=== PATIENT | male | born 1960 | race Caucasian/White ===

== ENCOUNTER 2017-09-21 05:30 | Outpatient (CLI) | payer BC ==
[~2017-09-21] VITALS: Ht 175.3 cm; Wt 96.2 kg
== END 2017-09-21 11:16 ==
LOC: PREOP 05:30
PROVIDERS: ATTEND Internal Medicine
DX: Z01.818 Encounter for other preprocedural examination (principal); Z12.11 Encounter for screening for malignant neoplasm of colon

== ENCOUNTER 2017-09-28 08:36 | Day surgery (SDC) | payer BC ==
--- NOTE | 2017-09-20 16:51 | HISTORY AND PHYSICAL ---
DATE OF SERVICE: DATE OF ADMISSION: 09/28/2017. COLONOSCOPY HISTORY AND PHYSICAL HISTORY OF PRESENT ILLNESS: The patient is a 57-year-old white male referred for his first screening colonoscopy by Dr. Vargas. He is deemed to be of average risk as he is not aware of any family history for colon cancer. He denies any bowel habit change, abdominal pain, bright red blood per rectum or melena. PAST MEDICAL HISTORY: Noncontributory. He takes no medication and reports no known drug allergies. FAMILY HISTORY: Pertinent for father who of complications of coronary heart disease at the age of 65. Mother secondary complications of diabetes and had hypertension at the age of 70. He has one brother living at the age of 53, has already had bypass surgery and one brother in his 50s with type 2 diabetes mellitus. He reports no significant past surgical history. SOCIAL HISTORY: He works in [employer] in [place] with no reported past smoking history and only occasional social alcohol intake. PHYSICAL EXAMINATION: GENERAL: Reveals a pleasant overweight white male in no acute distress. VITAL SIGNS: Blood pressure 110/80. CHEST: Clear. CARDIOVASCULAR: Reveals regular rate and rhythm without murmur, S3 or S4. NECK: Revealed no JVD, adenopathy or bruits. ABDOMEN: Soft, supple without mass, organomegaly or tenderness. Bowel sounds are positive. EXTREMITIES: Reveal no cyanosis, clubbing or edema. SKIN: Evaluation reveals no evidence for telangiectasia. No suspicious nevi are noted. ASSESSMENT: The patient was set up for screening colonoscopy, deemed to be of average risk on 09/28/2017. Prep instructions with Suprep kit were given and questions were answered. In answering his questions and his 's questions, 45 minutes of face to face time care spent not including dictation time. Another 15 minutes of staff time was spent going over prep instructions as well. I thank you for the referral of this pleasant gentleman. Job ID: [id number] DocumentID: [id number] Dictated Date: 09/20/2017 15:44:47 Associate Professor Of History Date: 09/20/2017 16:50:11 Dictated By: JOVITA MERCEDES MD
[2017-09-28 08:40] VITALS: BP 144/84
[2017-09-28] MEDS ORDERED: 1/2 NS IV SOLUTION 1,000 ML IV STA (08:44)
[2017-09-28] MEDS ORDERED: LIDOCAINE JELLY 2% (XYLOCAINE) 5 ML TUBE MM PRN (08:45)
[2017-09-28] MEDS ORDERED: 1/2 NS IV SOLUTION 1,000 ML IV ONE (08:49)
--- NOTE | 2017-09-28 09:32 | Pre-Op Note & Conscious Sedat ---
Pre-Operative Progress Note H&P Reviewed The H&P was reviewed, patient examined and no changes noted. Date H&P Reviewed: Sep 28, 2017 Time H&P Reviewed: 09:32 Conscious Sedation Pre-Proced ASA Class: 1 Airway Mallampati Classification: ([place] appropriate class) I. II. III, IV Lungs Heart ASA score ASA 1: a normal healthy patient ASA 2: a patient with a mild systemic disease (mid diabetes, controlled hypertension, obesity ASA 3: a patient with a severe systemic disease that limits activity (angina , COPD, prior Myocardial infarction) ASA 4: a patient with an incapacitating disease that is a constant threat to life (CHF, renal failure) ASA 5: a moribund patient not expected to survive 24 hrs. (ruptured aneurysm) ASA 6: a declared brain patient whose organs are being harvested. For emergent operations, add the letter E after the classification Grade 2 Sedation Plan: Analgesia, Amnesia, Plan communicated to team members, Discussed options with patient/fam, Discussed risks with patient/fam Note The patient is an appropriate candidate to undergo the planned procedure, sedation, and anesthesia. The patient immediately re-assessed prior to indication. JOVITA MERCEDES MD Sep 28, 2017 09:32
[2017-09-28] MEDS ORDERED: fentaNYL INJECTION 100 MCG/2 ML AMP ONE (10:11)
[2017-09-28] MEDS ORDERED: LIDOCAINE JELLY 2% (XYLOCAINE) 5 ML TUBE ONE (10:11)
[2017-09-28] MEDS ORDERED: MIDAZOLAM 2 MG/2 ML (VERSED) VIAL ONE ×3 (10:11→10:34)
[2017-09-28] MEDS: fentaNYL INJECTION 100 MCG/2 ML AMP IVP PRN ×2 (10:25→10:34)
[2017-09-28] MEDS: MIDAZOLAM 2 MG/2 ML (VERSED) VIAL IVP PRN ×2 (10:27→10:36)
[2017-09-28 11:20] VITALS: BP 110/76
[2017-09-28 11:50] VITALS: BP 116/79
[2017-09-28 12:03] VITALS: BP 116/79
--- NOTE | 2017-09-28 18:47 | OPERATIVE REPORT ---
DATE OF SERVICE: COLONOSCOPY SUMMARY INDICATION FOR PROCEDURE: Screening colonoscopy. DESCRIPTION OF PROCEDURE: The patient was placed in the left lateral decubitus position. Prior to undergoing colonoscopy, digital rectal evaluation was performed. Anal sphincter tone was normal and the perianal reflex was intact. The prostate was normal in size, anodular and nontender to digital inspection. No abnormalities, no additional inspection of the anal canal or distal rectal vault. The colonoscope was then inserted into the rectum and under direct visualization advanced to the cecum. The cecum was identified by identification of the ileocecal valve and cecal strap. Photographic documentation was obtained. Careful inspection was made as the colonoscope was withdrawn. FINDINGS: The quality of the prep was good. There was no evidence for internal or external hemorrhoids. The rectum and sigmoid colon were unremarkable. Present in the proximal descending colon was a 3 x 4 mm sessile adenomatous appearing polyp. It was biopsied and ablated and submitted for histopathology without subsequent blood loss being noted. The splenic flexure, transverse colon, hepatic flexure, ascending colon and cecum were unremarkable. ASSESSMENT: Diminutive hyperplastic appearing polyp was removed via hot forceps from the proximal descending colon. This was otherwise normal colonoscopy of the cecum. As long as there are no surprises on histopathology report, we would advocate consideration for repeat screening colonoscopy in 10 years. I thank you for the referral of this gentleman. Job ID: [id number] DocumentID: [id number] Dictated Date: 09/28/2017 11:11:35 Picking Table Worker Date: 09/28/2017 18:46:46 Dictated By: JOVITA MERCEDES MD
== END 2017-09-28 12:03 | disposition home or self-care (01) ==
LOC: ENDO 08:36
PROVIDERS: ATTEND Internal Medicine
DX: Z12.11 Encounter for screening for malignant neoplasm of colon (principal); K63.5 Polyp of colon

== ENCOUNTER → 2019-06-29 | Outpatient (CLI) | payer BC ==
[2019-06-30 16:06] LABS: ABSOLUTE RETIC # 43 10e9/L (24-90); RETICULOCYTE % 0.86 % (0.50-2.40)
[2019-06-30 16:58] LABS: LYMPHOCYTES % (MANUAL) 45 %; MONOCYTES % (MANUAL) 11 %; NEUTROPHILS % (MANUAL) 44 %
[2019-06-30 16:59] LABS: ANISOCYTOSIS SLIGHT
== END ==
LOC: LABNPT 10:40
PROVIDERS: ATTEND Family Medicine
DX: Z01.89 Encounter for other specified special examinations (principal)
CPT/HCPCS: 85007; 85045